=== PATIENT | male | born 1970 ===

== ENCOUNTER 2018-06-07 13:08 | Emergency (ER) | payer OTHER, SELFPAY ==
[2018-06-07 13:14] VITALS: BMI 26.4
[2018-06-07] MEDS ORDERED: Enalaprilat 2.5 MG/2 ML IVP STA (13:43)
--- NOTE | 2018-06-07 13:45 | ED PDOC ---
HPI: Hypertension/Hypotension <Jinny Martin - Last Filed: 06/07/18 14:40> Chief Complaint (Provider): sent from clinic for htn but went to clinic for eye problem History Per: Patient Onset/Duration Of Symptoms: Unknown Current Symptoms Are (Timing): Still Present Associated Symptoms: Blurred Vision. denies: Chest Pain, Dyspnea, Focal Weakness, Headache Additional Complaint(s): 48 yo male, no pmh as per patient, presented to ED today after he was sent from [facility] in [place] for findings of elevated blood pressure in the office. Pt went for visit today after colleagues at work told him his eyes were red, and was found to have BP in the 180s/100s. He was given 0.2 clonidine at the office, states he felt dizzy afterwards, but that has since passed. No repeat BP measurement provided from clinic. On triage at [facility] ED, BP was 187/110, and then 190/119. Pt admits to some palpitations and blurred vision x 3 weeks. Denies chest pain, shortness of breath, weakness, headaches, issues with voiding/stooling. He states that 2 y ago he was in ED for back pain, and BP was elevated. States he was given medication but took it only 4-5 times and then did not take it again and did not follow up with any PMD. PMH: back pain 2 y ago; htn? Surg: none Fam hx: htn, stroke Soc hx: denies tobacco, alcohol, drug use Meds: none Allergies: none <Bettina James - Last Filed: 06/07/18 17:08> <Ashley Soto - Last Filed: 06/08/18 15:45> Time Seen by Provider: 06/07/18 13:18 Chief Complaint (Nursing): Eye Problem Supervising Attending Note - Supervising Attending Note The Documented history was done by the: Physician Senior Technical Recruiter The documented physical exam was done by the: Physician Senior Technical Recruiter The documented procedures were done by the: Physician Senior Technical Recruiter - Attestation: I have personally seen and examined this patient.: Yes I have fully participated in the care of the patient.: Yes I have reviewed all pertinent clinical information, including history, physical exam and plan: Yes <Jinny Martin - Last Filed: 06/07/18 14:40> - Supervising Attending Note The Documented history was done by the: Physician Senior Technical Recruiter The documented physical exam was done by the: Physician Senior Technical Recruiter, Attending Physician - Attestation: I have personally seen and examined this patient.: Yes I have fully participated in the care of the patient.: Yes I have reviewed all pertinent clinical information, including history, physical exam and plan: Yes - Notes: Notes:: Hypertension, improving with ER treatment. Visual acuity only slightly impaired. Stressed follow up with PMD and ophtho and need to take BP meds daily as well as make major diet changes. <Ashley Soto - Last Filed: 06/08/18 15:45> Past Medical History Vital Signs: Last Vital Signs Temp 97 F L 06/07/18 13:12 Pulse 75 06/07/18 14:32 Resp 17 06/07/18 14:32 BP 152/100 H 06/07/18 14:32 Pulse Ox 99 06/07/18 14:32 <Jinny Martin - Last Filed: 06/07/18 14:40> Vital Signs: Last Vital Signs Temp 97 F L 06/07/18 13:12 Pulse 75 06/07/18 13:12 Resp 16 06/07/18 13:18 BP 190/119 H 06/07/18 13:18 Pulse Ox 99 06/07/18 13:12 - Medical History PMH: Back Problems, HTN - Family History Family History: States: Hypertension <Bettina James - Last Filed: 06/07/18 17:08> Vital Signs: Last Vital Signs Temp 98.2 F 06/07/18 16:56 Pulse 70 06/07/18 16:56 Resp 17 06/07/18 16:56 BP 144/88 06/07/18 16:56 Pulse Ox 99 06/07/18 17:08 <Ashley Soto - Last Filed: 06/08/18 15:45> - Home Medications Home Medications: Ambulatory Orders Medication Instructions Recorded Methylprednisolone [Medrol Dose 4 mg PO DAILY #21 tab 01/16/16 Pack (21 tabs)] Oxycodone HCl/Acetaminophen 1 tab PO Q8H #10 tab 01/16/16 [Percocet 325 mg-5 mg] hydroCHLOROthiazide [Hydrodiuril] 25 mg PO DAILY #30 tab 06/07/18 - Allergies Allergies/Adverse Reactions: Allergies Allergy/AdvReac Type Severity Reaction Status Date / Time No Known Allergies Allergy Verified 01/16/16 11:18 Review of Systems Constitutional: Negative for: Fever, Chills Eyes: Positive for: Vision Change (blurry vision). Negative for: Pain Cardiovascular: Positive for: Palpitations. Negative for: Chest Pain Respiratory: Negative for: Cough, Shortness of Breath Gastrointestinal: Negative for: Nausea, Vomiting Genitourinary Male: Negative for: Dysuria, Frequency Neurological: Negative for: Weakness, Numbness, Incoordination, Change in Speech , Altered Mental Status <Bettina James - Last Filed: 06/07/18 17:08> Physical Exam - Reviewed Nursing Documentation Reviewed: Yes Vital Signs Reviewed: Yes - Physical Exam Head Exam: Positive for: ATRAUMATIC Skin: Positive for: Normal Color, Warm, Dry Eye Exam: Positive for: EOMI, PERRL, Conjunctival injection, Other (visual acuity 20/30 in both eyes) ENT: Positive for: Pharynx Is (clear). Negative for: Nasal Congestion, Pharyngeal Erythema Neck: Positive for: Supple Cardiovascular/Chest: Positive for: Regular Rate, Rhythm, Chest Non Tender Respiratory: Positive for: Normal Breath Sounds. Negative for: Accessory Muscle Use, Respiratory Distress Gastrointestinal/Abdominal: Positive for: Normal Exam, Bowel Sounds, Soft Extremity: Positive for: Normal ROM. Negative for: Tenderness, Deformity Neurologic/Psych: Positive for: Alert, cloth booker II-XII, Oriented, Other (strength 5/ 5 in all extremities; no focal neuro deficits). Negative for: Aphasia <Bettina James - Last Filed: 06/07/18 17:08> - Laboratory Results Result Diagrams: 06/07/18 14:30 06/07/18 14:30 - ECG O2 Sat by Pulse Oximetry: 99 <Bettina James - Last Filed: 06/07/18 17:08> - Laboratory Results Result Diagrams: 06/07/18 14:30 06/07/18 14:30 <Ashley Soto - Last Filed: 06/08/18 15:45> Medical Decision Making Medical Decision Making: Hypertensive urgency - EKG - Troponin I - CMP - CBC - Vasotec 2.5 mg IV - Head CT - Visual acuity check BP improved to 132/89; visual acuity 20/30 in [address] eyes[address] Head CT- no acute pathology Troponin I neg Discussed with patient risks of htn on organs like kidneys, brain, heart, and importance of taking medication. Discussed lifestyle changes exercising more and suggested dietary changes such choosing fish and chicken over red meat and avoiding salt in cooking. Pt and his partner () verbalized understanding. Pt to be discharged with prescription for hydrochlorothiazide 25 mg daily; and has f/u appt with PCP at [facility] in 1 week. Pt was seen/discussed with Dr. Martin and Dr. Soto. <Bettina James - Last Filed: 06/07/18 17:08> Disposition <Jinny Martin - Last Filed: 06/07/18 14:40> - Patient ED Disposition Is Patient to be Admitted: No - Disposition Disposition: Routine/Home Disposition Time: 17:08 <Bettina James - Last Filed: 06/07/18 17:08> <Ashley Soto - Last Filed: 06/08/18 15:45> - Clinical Impression Clinical Impression: Hypertension - Disposition Referrals: [facility] [Provider Group] - 06/14/18 ([facility]) Mark Miller MD [Staff Provider] - ([facility] EN 2-3 LEWIS) Condition: STABLE Prescriptions: hydroCHLOROthiazide [Hydrodiuril] 25 mg PO DAILY #30 tab Instructions: High Blood Pressure in Adults, Controlling Your Blood Pressure Through Lifestyle Forms: [facility] (Urdu) Print Language: MOROCCAN
[2018-06-07] MEDS ORDERED: EnalaprilAT 1.25 mg/ml Inj ONE (14:00)
[2018-06-07] MEDS ORDERED: EnalaprilAT 1.25 mg/ml Inj IVP STA (14:19)
[2018-06-07 14:50] LABS: BASO # 0.1 K/uL (0.0-0.2); BASO % 0.6 % (0.0-2.0); EOS # 0.1 K/uL (0.0-0.7); HEMOGLOBIN 17.8 g/dL (12.0-18.0); LYMPH % 25.8 % (20.0-40.0); MEAN CELL VOLUME 89.4 fl (80.0-94.0); MEAN CORPUSCULAR HEMOGLOBIN 31.8 pg (27.0-31.0); MEAN CORPUSCULAR HGB CONC 35.6 g/dL (33.0-37.0); MEAN PLATELET VOLUME 9.8 fl (7.2-11.7); MONO # 0.5 K/uL (0.0-0.8); MONO % 4.1 % (0.0-10.0); NEUT # 8.1 K/uL (1.8-7.0); NEUT % 68.5 % (50.0-75.0); NRBC % 0.1 % (0.0-0.0); RBC 5.58 Mil/uL (4.40-5.90); WHITE BLOOD COUNT 11.8 K/uL (4.8-10.8)
[2018-06-07 14:54] LABS: ALB/GLOB RATIO 1.4 (1.0-2.1); ALBUMIN 4.5 g/dL (3.5-5.0); ALT/SGPT 73 U/L (21-72); AST/SGOT 38 U/L (17-59); BLOOD UREA NITROGEN 15 mg/dl (9-20); CALCIUM 9.3 mg/dL (8.4-10.2); GFR AFRICAN-AMERICAN > 60; GFR NON-AFRICAN AMERICAN > 60
[2018-06-07 15:05] LABS: SQUAMOUS EPITHIAL < 1 /hpf (0-5); URINE BILIRUBIN NEGATIVE (NEGATIVE); URINE BLOOD SMALL (NEGATIVE); URINE CLARITY CLEAR (Clear); URINE COLOR YELLOW (YELLOW); URINE GLUCOSE (UA) NEG (Normal); URINE LEUKOCYTE ESTERASE NEG Leu/uL (Negative); URINE PROTEIN NEGATIVE (NEGATIVE); URINE UROBILINOGEN 0.2-1.0 mg/dL (0.2-1.0)
--- NOTE | 2018-06-07 15:34 | CT ---
Date of service: 06/07/2018 PROCEDURE: CT HEAD WITHOUT CONTRAST. HISTORY: hypertension, blurred vision x 3 weeks COMPARISON: None available. TECHNIQUE: Axial computed tomography images were obtained through the head/brain without intravenous contrast. Radiation dose: Total exam DLP = 789.71 mGy-cm. This CT exam was performed using one or more of the following dose reduction techniques: Automated exposure control, adjustment of the mA and/or kV according to patient size, and/or use of iterative reconstruction technique. FINDINGS: HEMORRHAGE: No intracranial hemorrhage. BRAIN: Hahn-white matter differentiation is preserved. There is no mass, mass effect or abnormal extra-axial fluid collection. There is no territorial infarction. The midline sagittal structures are normal. VENTRICLES: The ventricles are normal in size, shape and configuration. CALVARIUM: The skull base and calvarium are normal. PARANASAL SINUSES: Predominantly clear. MASTOID AIR CELLS: Predominantly clear. OTHER FINDINGS: None. IMPRESSION: No acute intracranial abnormality.
[2018-06-07 16:58] VITALS: BP 144/88; PULSE 70; RESP 17; TEMP 98.2
[2018-06-07 17:07] VITALS: O2SAT 99
--- NOTE | 2018-06-08 17:51 | CARD ---
APPROVED REPORT Date of service: 06/07/2018 EKG Measurement Heart [id number] <Conclusion> Normal sinus rhythm Possible Left atrial enlargement Incomplete right bundle branch block Cannot rule out Inferior infarct, age undetermined Abnormal ECG
== END 2018-06-07 16:56 | disposition home or self-care (01) ==
LOC: H.ER 13:08
DX: I10 Essential (primary) hypertension (principal); Z86.73 Personal history of transient ischemic attack (TIA), and cerebral infarction without residual deficits